=== PATIENT | female | born 1955 | race Caucasian/White ===

== ENCOUNTER 2020-11-07 06:55 | Inpatient (IN) ==
--- NOTE | 2020-10-18 15:03 | PAT Medication Instructions ---
Medication Instructions Date of Service October 18, 2020 Home Medications citalopram 20 mg tablet 40 mg PO HS cyclosporine 0.05 % eye drops 1 drp OPHTHALMIC (EYE) Q12H methimazole 5 mg tablet 10 mg PO QAM anastrozole 1 mg PO QPM loratadine 10 mg PO QAM ASK your prescriber and surgeon anastrozole 1 mg PO QPM DO NOT take the morning of surgery loratadine 10 mg PO QAM Take morning of surgery With a small sip of water, OTHERWISE NOTHING TO EAT OR DRINK AFTER MIDNIGHT: cyclosporine 0.05 % eye drops 1 drp OPHTHALMIC (EYE) Q12H methimazole 5 mg tablet 10 mg PO QAM Take evening before surgery citalopram 20 mg tablet 40 mg PO HS cyclosporine 0.05 % eye drops 1 drp OPHTHALMIC (EYE) Q12H Other Notes If you have any questions please call us at [phone] or [phone] or [phone] or [phone]
--- NOTE | 2020-10-19 12:53 | Anesthesiology Consultation ---
Date of Service October 19, 2020 Assessment & Plan (1) Encounter for pre-operative examination: - COVID screening: Per assessment on 10/19: No known COVID-19 positive contacts or current COVID-19 related symptoms. Only wears mask "when required." Returned from travel to [facility] 10/15 (stayed for one week/condo with family of 8 people, only spouse vaccinated). Patient planning to travel to [facility] 10/21-10/25 with spouse/son/daughter/2 grandchildren. Surgeon arranging preop COVID testing. Awaiting results. Given non-compliance with mask wearing/high risk activity, will order cepheid for AM DOS. Order placed/OR made aware. - RUE limb restriction: s/p right lumpectomy - Anxious: Patient anxious regarding surgery/anesthesia. Requests deeper sedation if spinal used > doesn't want to "hear"/have awareness during surgery. Chart Review Chart Review: Acceptable Risk for Surgery and Patient seen in Pre Admission Testing Teaching & Discussion Pre-Anesthesia Teaching/Discussion Notes: Instructed NPO after midnight before surgery,except medications with 15 cc of water. Medication instructions provided according to the PAT guidelines. History Surgery Operation Date: 11/07/20 10:45 Proposed Procedures p Left Total Knee Arthroplasty - Michael Dee MD Height/Weight Height: 5 ft 7 in Weight: 78.3 kg Allergies Allergy/AdvReac Type Severity Reaction Status Date / Time paroxetine AdvReac Unknown Unknown Verified 10/18/20 12:23 pseudoephedrine AdvReac Unknown Nausea Verified 10/18/20 15:02 [From [facility]] ("sick to stomach" birds Allergy Unknown Bird Uncoded 10/18/20 15:02 feathers- facial swelling morphine and related sulfa AdvReac Unknown "Wacky" Uncoded 10/18/20 15:02 antibiotics feeling Medications Home Medications Medication Instructions Recorded Confirmed Last Taken citalopram 20 mg tablet 40 mg PO HS 12/02/19 10/18/20 Unknown cyclosporine 0.05 % eye drops 1 drp OPHTHALMIC (EYE) Q12H 12/02/19 10/18/20 Un known methimazole 5 mg tablet 10 mg PO QAM 12/02/19 10/18/20 Unknown anastrozole 1 mg PO QPM 10/18/20 10/18/20 Unknown loratadine 10 mg PO QAM 10/18/20 10/18/20 Unknown Past Medical History Medical History Adjustment disorder with depressed mood Hx Arthritis Knees Cancer Hx right breast s/p right lumpectomy 2018, chemo/radiation completed 2019 Ganglion cyst of dorsum of left wrist Hyperthyroidism on methimazole, euthyroid on most recent labs, monitored by PCP Migraine Hx Mild chronic obstructive pulmonary disease stable Temporomandibular joint disorder Occasional cramping, no locking Toxic diffuse goiter Exercise / Class Metabolic Activity II 4-5 Yardwork/Stairs/Walk up hill (one FS (no CP, no SOB)) Past Family History Family History Mother Musculoskeletal disorder Father Diabetes Past Surgical History Surgical History History of colonoscopy 2019 History of colposcopy History of lumpectomy of right breast 2017 History of tooth extraction WTE Past Anesthesia History No Family Hx of Anesthesia Complications and Other ("Very wired" post op, also "slow to wake up") History of PONV No Hx of PONV and No Hx of Motion Sickness Social History Smoking Status: Current every day smoker Smoking cigarettes per day: 10 cigs/day (tobacco use x 40+ years) Do You Dip or Chew Tobacco: No Hx Alcohol Use: Yes Alcohol type: beer Alcohol Intake Frequency Comment: Rare Hx Substance Use: No Review of Systems Patient denies chest pain, shortness of breath, dyspnea on exertion, fever, chills, cough, wheezing, palpitations. Physical Exam Vital Signs VITALS BP 110/67 P 73 TEMP WNL SP02 95%RA RESP 16 PHYSICAL Full cervical extension range of motion. Full TMJ range of motion. TMD 3 finger breaths Mallampati Score 3 Dentition: several missing molars Lungs: clear throughout to auscultation Cardiac: regular rate and rhythm, no murmurs noted Spine: normal Carotid arteries: negative bruit Extremities: no edema Lab Results Anesthesia Preop Results Results Anesthesia Widget: WBC 9.32 K/uL (4.8-10.8) 10/19/20 Hgb 15.4 g/dL (12.0-16.0) 10/19/20 Hct 46.4 % (37-47) 10/19/20 Plt 367 K/uL (130-400) 10/19/20 Na 136 mmol/L (136-145) 10/19/20 K 3.7 mmol/L (3.5-5.1) 10/19/20 Cl 102 mmol/L (98-107) 10/19/20 CO2 31 mmol/L (21-32) 10/19/20 BUN 9 mg/dl (7-18) 10/19/20 Creat 0.72 mg/dl (0.6-1.2) 10/19/20 Glucose Level 75 mg/dl (70-99) 10/19/20 PT 10.8 Seconds (9.0-12.0) 10/19/20 PTT 27.5 Seconds (21.0-31.0) 10/19/20 INR 1.1 (0.9-1.1) 10/19/20 HA1c 5.9 % (4.5-5.6) H 10/19/20 Urine Color Yellow 10/19/20 Urine Appearance Clear (Clear) 10/19/20 Urine pH 6.0 (4.5-7.5) 10/19/20 Urine Specific Buna 1.004 (1.000-1.030) 10/19/20 Urine Protein Negative (Negative) 10/19/20 Urine Glucose (UA) Negative (Negative) 10/19/20 Urine Ketones Negative (Negative) 10/19/20 Urine Blood Negative (Negative) 10/19/20 Urine Nitrite Negative (Negative) 10/19/20 Urine Bilirubin Negative (Negative) 10/19/20 Urine Urobilinogen Negative (Negative) 10/19/20 Urine Leukocyte Esterase Negative (Negative) 10/19/20 Blood Type A Positive 10/19/20 Antibody Screen NEGATIVE 10/19/20 Testing Laboratory Results 07/31/20 TSH 0.88 (WNL) Electrocardiogram Date: 10/19/20 NSR at 67bpm. Possible LAE. Chest X-Ray Date: 10/19/20 No large infiltrates or consolidative lesions are seen. Possible trace left pleural effusion or pleural thickening. Preop testing including CXR to be forwarded to PCP for continuity of care. Echocardiogram Date: 12/22/18 LVEF greater than 70%. Grade 1 diastolic dysfunction. No regional wall motion abnormality. Mild AR. Mildly dilated ascending aorta.
--- NOTE | 2020-11-06 16:00 | History & Physical Report ---
Date of Service November 06, 2020 Assessment & Plan (1) Primary osteoarthritis of left knee: Plan: Treatment options discussed. She has failed conservative measures as above and would like to proceed with surgical intervention. Risks, benefits and alternatives to surgery including but not limited to infection, DVT, pain, stiffness, need for revision surgery, damage to blood vessels, damage to nerves, PE, , were discussed with the patient and they wish to proceed. Plan on left total knee arthroplasty at [facility] on 11/07/20. Will plan on ASA 81mg BID x 1 mo post op, OPPT. All questions answered. F/u post op. History of Present Illness Chief Complaint: Left knee pain Primary Care Provider: Gagandeep Olivas PA-C 65 year old female with PMHx significant for migraine, hypothyroid, breast Ca, COPD presents with longstanding and worsening left knee pain. She has failed conservative measures including injections, NSAIDs, bracing. Pain interfering with her daily and leisure activities. She would like to proceed with replacement. Patient denies headaches, sweats, fevers, chills, double vision, blurred vision, cough, sore throat, dysphagia, chest pain, sob, wheezing, n/v/d/c, numbness, tingling, fatigue, urinary symptoms, mood disorders. ROS positive for left knee pain and stiffness. Allergies Allergy/AdvReac Type Severity Reaction Status Date / Time paroxetine AdvReac Unknown Unknown Verified 10/18/20 12:23 pseudoephedrine AdvReac Unknown Nausea Verified 10/18/20 15:02 [From [facility]] ("sick to stomach" birds Allergy Unknown Bird Uncoded 10/18/20 15:02 feathers- facial swelling morphine and related sulfa AdvReac Unknown "Wacky" Uncoded 10/18/20 15:02 antibiotics feeling Home Medications Medication Instructions Recorded Confirmed Type citalopram 20 mg tablet (Celexa) 40 mg PO HS 12/02/19 10/18/20 History cyclosporine 0.05 % eye drops 1 drp OPHTHALMIC (EYE) Q12H 12/02/19 10/18/20 History (Restasis MultiDose) methimazole 5 mg tablet 10 mg PO QAM 12/02/19 10/18/20 History anastrozole 1 mg tablet 1 mg PO QPM 10/18/20 10/18/20 History loratadine 10 mg capsule 10 mg PO QAM 10/18/20 10/18/20 History Past Med/Surg History Medical History Adjustment disorder with depressed mood Hx Arthritis Knees Cancer Hx right breast s/p right lumpectomy 2017, chemo/radiation completed 2018 Ganglion cyst of dorsum of left wrist Hyperthyroidism on methimazole, euthyroid on most recent labs, monitored by PCP Migraine Hx Mild chronic obstructive pulmonary disease stable Temporomandibular joint disorder Occasional cramping, no locking Toxic diffuse goiter Surgical History History of colonoscopy 2019 History of colposcopy History of lumpectomy of right breast 2017 History of tooth extraction WTE Family History Mother Musculoskeletal disorder Father Diabetes Social History (Updated 10/18/20 @ 12:54 by Darlene Berg RN) Smoking Status: Current every day smoker Tobacco Type: Cigarettes packs per day: 0.50; Years Smoked: 30; Cigarettes Per Day: 10 cigs/day (tobacco use x 40+ years); Second Hand Exposure: No; Hx Alcohol Use: Yes Alcohol type: beer Hx Substance Use: No Preferred Language: Kazakh Communication Ability: Effective Nocturnist Physician Required: No Beliefs That Will Affect Care: None marital status: Current Living Situation: Spouse current occupational status: retired Feels Safe at Home: Yes Assistive Devices: Brace/Splint/Immobilizer, Cane and Glasses Review of Systems All systems reviewed & are unremarkable except as noted in HPI & below Physical Exam Constitutional: well developed and well nourished; no acute distress Eyes: PERRL, conjunctivae normal, anicteric sclerae ENMT: external ear and nose normal, oropharynx normal Neck: trachea midline, no thyromegaly Respiratory: normal respiratory effort, lungs clear to auscultation Cardiovascular: RRR, no murmur, no edema Musculoskeletal: Left knee: Moderate effusion. Tenderness medial joint line, medial and lateral patellar facet. Positive Lon's. Stable to valgus and varus stress. ROM 10-110 degrees. Varus alignment Skin: no rashes, warm and dry Neurologic: patellar DTR's 2+ bilat, sensation intact Psychiatric: A+Ox3, euthymic affect Results & Data ([facility]) Diagnostic Findings Left knee: Left greater than right tricompartmental arthritis. Bone on bone medial compartment with defect medial femoral condyle. Subluxation femur on tibia. Periarticular osteophyte formation all 3 compartments.
[~2020-11-07 06:55] MED LIST: ACETAMINOPHEN 500 MG TAB PO SCH; BUPIVACAINE 0.25% 30 ML VIAL ONE; BUPIVACAINE 0.5 % 5 MG/1 ML PF 10ML VIAL ONE; FAMOTIDINE 20 MG TAB PO SCH; GABAPENTIN 300 MG CAP PO SCH; LR 500ML BOLUS, THEN 15ML/HR IV SCH; METOCLOPRAMIDE HCL 10 MG TABLET PO SCH; ROPIVACAINE 0.5% HCL/PF 150 MG, BUPIVACAINE 0.75% MPF 20 ML, EPINEPHrine 30MG/30ML (OR ... INSTIL SCH; TRANEXAMIC ACID 1,000 MG **IV Intra-op IV SCH; ceFAZolin 1000MG 1,000 MG/7.5 ML SYR IV SCH; dexAMETHasone 4 MG TAB PO SCH
[2020-11-07] MEDS ORDERED: MIDAZOLAM HCL 1 MG/ML 2ML VIAL ONE (07:21)
[2020-11-07] MEDS ORDERED: fentaNYL citrate 100 MCG/2 ML VIAL ONE (07:21)
[2020-11-07] MEDS ORDERED: ONDANSETRON INJ 2 MG/ML 2 ML VIAL IV PRN ×2 (08:17→15:37)
[2020-11-07] MEDS ORDERED: ATROPINE SULFATE 0.1 MG/ML 10ML SYR IV PRN (08:17)
[2020-11-07] MEDS: TRANEXAMIC ACID 1,000 MG **IV Pre-op IV SCH ×2 (09:29→09:59)
--- NOTE | 2020-11-07 09:29 | History & Physical Bridge Note ---
Date of Service November 07, 2020 History & Physical Bridge Note I have examined the patient, reviewed the History & Physical and in the interval since the performance of the History & Physical I have noted the following changes of clinical significance: no changes noted
[2020-11-07] MEDS ORDERED: ORTHO JOINT ANESTHETIC ONE (09:36)
[2020-11-07] MEDS ORDERED: PROPOFOL IV EMULSION 10 MG/ML 20 ML VIAL IV ONE ×4 (10:06→10:50)
--- NOTE | 2020-11-07 12:18 | Operative Report ---
Post Operative Report Pre & Post Diagnosis Operation Date: 11/07/20 09:20 Pre-Op Diagnosis: Left Knee Osteoarthritis Post-Op Diagnosis: Left Knee Osteoarthritis I identified the patient and participated in the time-out.: Yes Procedure Operation Date: 11/07/20 09:20 Actual Procedures p Left Total Knee Arthroplasty(Left) - Michael Dee MD Surgeon Michael Dee MD Production Cell Leader Maximo DILLON Estimated Blood Loss 5 Findings Consistent with Post-Op Diagnosis Specimens Bone cuts Drains 2 Hemovac Anesthesia Type MAC Spinal Regional Complications none Indications 65-year-old female with chronic progressive osteoarthritis left greater than right knee. Radiographs demonstrate she is [id number] some bone wear and flattening of the femoral condyle medial compartment with varus knee and moderately advanced patellofemoral osteoarthritis. Description of Procedure Patient was taken to the operating room placed supine on the operating table and anesthetized under spinal MAC regional anesthesia. Exam under anesthesia demonstrated 15 through 130 degrees range of motion, there was a moderate effusion, there was no instability. A pneumatic tourniquet was placed about the thigh of the left lower extremity. The left lower extremity was prepped and draped in usual fashion. The leg was elevated exsanguinated with an Esmarch bandage and the pneumatic was raised to 300 mm mercury. An anterior incision was made across the left knee. The skin was incised longitudinally subcutaneous flaps were elevated and an incision was made through the medial retinaculum extending up into the mid third of the quadriceps tendon and extended down to the medial tibial tubercle. Intra-articular findings demonstrated marked synovitis in the knee with an inflammatory type arthritis. There was some loose bodies in the knee which were excised. There was [id number] medial compartment with ridging and eburnated bone and moderately bands patellofemoral osteoarthritis. There are tricompartmental osteophytes.. The knee was exposed by excising the infrapatellar fat pad, excising the meniscal remnants and anterior cruciate ligament. All of the inflamed synovial tissue was resected with a partial synovectomy of suprapatellar pouch area and into the gutters. The fat pad over the anterior femur was resected for placement of the component in that area. The lateral synovial bands were release. The femur was exposed. The drill hole was made into the intramedullary canal the femur the guidewire was placed and the cutting guide was adjusted to resect +2 off the femur at a 5 degree valgus cut due to the flexion contracture. The distal femoral cut was made with the oscillating saw. The sizing guide was placed and the drill holes were placed in 3 degrees of external rotation. The size 7, 4-in-1 cutting block was placed. The anterior and posterior chamfer cuts were made. The knee was extended and a subperiosteal peel lateral release was performed around the patella. The patella width was measured and width was reproduced using freehand cut technique. The 32 x 8.5 millimeter symmetrical patella was used. 3 drill holes are made for the pegs. The tibia was exposed. An external tibial cutting guide was positioned corrected for perpendicular cut to the long axis of the tibia and appropriate posterior slope and the proximal cut was made with the oscillating saw. All osteophytes were resected. The lamina salesperson china and glassware was used to assess ligamentous balance and the ligaments were balanced in extension and flexion. Sizing blocks placed demonstrated 14 mm symmetrical extension flexion gap. The tibia was reexposed and measured for a size E tibial component. This was externally rotated in line with the tibial tubercle and the fixation pins were drilled. The proximal tibia was fashioned with the drill and punch. The intramedullary canal bone was somewhat osteoporotic. The size 7 CR femoral trial was inserted. The trial MC inserts were used. The 14 mm insert gave balanced ligaments through full range of motion. The patella tracked centrally. the trials were removed. The orthomix anesthetic cocktail was injected per protocol. The knee was then copiously irrigated with pulsatile lavage saline solution. The final components were cemented with Refobecin bone cement. The final components were [employer] persona left standard size 7 CR femoral component, E tibial component, 14 mm MC polyethylene for tibia, 32 x 8.5 symmetrical patella. After the cement cured with the knee in full extension the Betadine soak was used per protocol. The knee joint was copiously irrigated with pulsatile saline solution. 2 drains were brought out laterally and connected to a Hemovac. The quadriceps tendon and medial retinaculum were closed with interrupted [id number] #1 Vicryl sutures. The knee was taken through a full range of motion and repair was secure. The subcutaneous tissues were closed with 2-0 Vicryl sutures and skin was closed with 3-0 stratofix and Prineo glue system and Silverlon dressing. the patient tolerated the procedure well. Maximo DILLON my physician assistant store manager trainee, assisted in soft tissue retraction instrument management leg positioning the closure and will participate in the postoperative care of the patient. I attest to the content of the Intraoperative Record and any orders documented therein. Any exceptions are noted below.
--- NOTE | 2020-11-07 12:56 | XRay Report ---
XR knee LT 1 or 2V routine HISTORY: 65 years-old Female Surgical Post Op left knee total joint arthroplasty COMPARISON: None TECHNIQUE: 2 views of the left knee FINDINGS: Left knee total joint arthroplasty with patellar resurfacing. Satisfactory alignment without acute fr acture or unexpected opaque foreign body. Expected postoperative soft tissue swelling and deep tissue air with overlying bandage material an surgical drainage catheter. IMPRESSION: Left knee total joint arthroplasty with expected postoperative changes. ACT 112: Negative or not required by law. The above report was generated using voice recognition software. It may contain grammatical, syntax o r spelling errors. Electronically signed by: Flako Hamilton M.D. 11/07/2020 12:54 PM
[2020-11-07] MEDS: SODIUM CHLORIDE 0.9% 1000ML 1,000 ML IV SCH (15:20)
--- NOTE | 2020-11-07 15:32 | Anesthesiology Progress Note ---
Date of Service November 07, 2020 Anesthesia Post Procedure Vital Signs Vital Signs: Temp Pulse Pulse Resp BP Pulse Ox 11/07/20 15:00 36.6 C 66 15 138/66 95 11/07/20 14:30 36.6 C 69 16 140/83 95 11/07/20 14:15 68 16 143/87 H 94 11/07/20 14:00 73 20 180/93 H 92 11/07/20 13:45 66 19 147/79 H 94 11/07/20 13:30 65 17 137/80 93 11/07/20 13:20 36.4 C L 64 17 150/74 H 93 11/07/20 13:10 66 19 161/76 H 92 11/07/20 13:00 65 20 149/82 H 95 11/07/20 12:50 75 20 147/81 H 94 11/07/20 12:45 69 20 146/76 H 94 11/07/20 12:35 69 18 125/69 98 11/07/20 12:25 71 17 117/63 98 11/07/20 12:18 36.4 C L 75 14 114/66 93 11/07/20 08:05 36.8 C 72 20 174/95 H 91 11/07/20 07:21 37 C 75 18 170/85 H 96 Pain Intensity Left Knee: Pain Intensity: 0 Transfer of Care Handoff Completed per policy Notes Mental Status: alert / awake / arousable and participated in evaluation Patient Amnestic to Procedure: Yes Nausea / Vomiting: adequately controlled Pain: adequately controlled Airway Patency, RR, SpO2: stable & adequate BP & HR: stable & adequate Hydration State: stable & adequate Neuraxial Anesthesia: was administered and sensory block is resolving Anesthetic Complications: no major complications apparent and Pt Satisfied with anesthetic care
[2020-11-07] MEDS ORDERED: HYDROmorphone INJ 0.5 MG/0.5 ML SYR IV PRN (15:37)
[2020-11-07] MEDS ORDERED: METOCLOPRAMIDE HCL INJ 5 MG/ML 2 ML VIAL IV PRN (15:37)
[2020-11-07] MEDS ORDERED: bisacodyL 10 MG SUPP PR PRN (15:37)
[2020-11-07] MEDS ORDERED: NALOXONE HCL 0.4 MG/1 ML VIAL/CARP IV PRN (15:37)
[2020-11-07] MEDS ORDERED: ACETAMINOPHEN 500 MG TAB PO SCH (15:37)
[2020-11-07] MEDS ORDERED: MAGNESIUM HYDROXIDE SUSP 30 ML UDC PO PRN (15:37)
[2020-11-07] MEDS: ACETAMINOPHEN 500 MG TAB PO SCH ×2 (17:21→21:44)
[2020-11-07] MEDS: ceFAZolin 1000MG 1,000 MG/7.5 ML SYR IV SCH (17:31)
[2020-11-07] MEDS: CITALOPRAM 40 MG TAB PO SCH (20:31)
[2020-11-07] MEDS: oxyCODONE HCL IR 5 MG TAB (IMMEDIATE RELEASE) PO PRN (20:31)
[2020-11-07] MEDS: SENNA 8.6 MG TAB PO SCH (20:31)
[2020-11-07] MEDS: ASPIRIN 81 MG ECTAB PO SCH (20:31)
[2020-11-07] MEDS: DOCUSATE SODIUM 100 MG CAP PO SCH (20:32)
[2020-11-07] MEDS: ANASTROZOLE 1 MG TAB PO SCH (20:32)
[2020-11-08] MEDS: ceFAZolin 1000MG 1,000 MG/7.5 ML SYR IV SCH (01:02)
[2020-11-08] MEDS: SODIUM CHLORIDE 0.9% 1000ML 1,000 ML IV SCH (01:02)
[2020-11-08] MEDS: oxyCODONE HCL IR 5 MG TAB (IMMEDIATE RELEASE) PO PRN ×5 (01:14→23:43)
[2020-11-08] MEDS: ACETAMINOPHEN 500 MG TAB PO SCH ×3 (06:03→21:44)
[2020-11-08 06:41] LABS: Hematocrit (blood only) 37.7 % (37-47); Hemoglobin 12.6 g/dL (12.0-16.0); Mean Corpuscular Hgb Conc 33.4 g/dL (32-36); Mean Corpuscular Volume 92.6 fL (80-100); Mean Platelet Volume 9.4 fL (7.4-10.4); Platelet Count 383 K/uL (130-400); RDW Coefficient of Variation 13.4 % (11.5-14.5); RDW Standard Deviation 45.5 fL (36.4-46.3); Red Blood Count 4.07 M/uL (4.2-5.4); White Blood Count 14.47 K/uL (4.8-10.8)
[2020-11-08 07:19] LABS: BUN Creatinine Ratio 13.9 (10-20); Calcium 8.7 mg/dl (8.5-10.1); Creatinine Clr Calc Pharmacy 73.7 ml/min; Est GFR (African American) 89.8 ml/min; Est GFR (Non-African American) 77.5 ml/min; Potassium 4.1 mmol/L (3.5-5.1)
[2020-11-08] MEDS: DOCUSATE SODIUM 100 MG CAP PO SCH ×2 (08:49→19:43)
[2020-11-08] MEDS: methIMAzole 5 MG TABLET PO SCH (08:49)
[2020-11-08] MEDS: ASPIRIN 81 MG ECTAB PO SCH ×2 (08:50→19:42)
[2020-11-08] MEDS: LORATADINE 10 MG TAB PO SCH (08:50)
[2020-11-08] MEDS: MULTIVITAMIN TAB PO SCH (08:50)
--- NOTE | 2020-11-08 09:50 | Orthopedic Progress Note ---
Date of Service November 08, 2020 Assessment & Plan (1) Primary osteoarthritis of left knee: Plan: POD#1 left TKA -PT/OT -Pain management as written -AM labs-hemoglobin 12.6 this morning. Mild leukocytosis likely reactive due to perioperative steroids and surgical stress -DVT prophylaxis-SCDs, TEDs, ASA 81mg BID -D/c planning-home with outpatient PT, today vs tomorrow depending on hemovac drain output Admission and Anticipated Discharge Date Admission Date: November 07, 2020 Subjective POD#1 left TKA. Doing well this morning. Pain well controlled. No current complaints. Denies chest pain, sob, dizziness, n/v/d, fever, chills Review of Systems Review of Systems: All systems reviewed & are unremarkable except as noted in Subjective Physical Exam Physical Exam: Dressing to left knee is c/d/i. No calf tenderness. Toes mobile. Good dorsiflexion. Distally n/v status and sensation intact. Constitutional: well developed and well nourished; no acute distress Results & Data ([facility]) Vital Signs (Past 12 Hours) Vital Signs Temp Pulse Pulse Resp BP Pulse Ox 11/08/20 07:25 36.6 C 74 18 135/72 98 11/08/20 03:12 36.6 C 70 16 130/72 94 11/07/20 22:57 96 11/07/20 22:56 36.9 C 69 16 162/90 H 86 L
[2020-11-08] MEDS: SENNA 8.6 MG TAB PO SCH (19:42)
[2020-11-08] MEDS: CITALOPRAM 40 MG TAB PO SCH (19:42)
[2020-11-08] MEDS: ANASTROZOLE 1 MG TAB PO SCH (19:42)
[2020-11-09] MEDS: oxyCODONE HCL IR 5 MG TAB (IMMEDIATE RELEASE) PO PRN ×3 (04:37→12:23)
[2020-11-09] MEDS: ACETAMINOPHEN 500 MG TAB PO SCH (04:58)
[2020-11-09 06:26] VITALS: BP 127/80; TEMP 97.9
--- NOTE | 2020-11-09 07:22 | Orthopedic Progress Note ---
Date of Service November 09, 2020 Assessment & Plan (1) Primary osteoarthritis of left knee: Plan: POD#2 left TKA -PT/OT -Pain management as written -DVT prophylaxis-SCDs, TEDs, ASA 81mg BID -D/c planning-home with outpatient PT, today. D/c hemovac prior to d/c Admission and Anticipated Discharge Date Admission Date: November 07, 2020 Subjective POD#2 left TKA. Doing well this morning. Pain well controlled. No current complaints. Denies chest pain, sob, dizziness, n/v/d, fever, chills Review of Systems Review of Systems: All systems reviewed & are unremarkable except as noted in Subjective Physical Exam Physical Exam: Dressing to left knee is c/d/i. No calf tenderness. Toes mobile. Good dorsiflexion. Distally n/v status and sensation intact. Constitutional: well developed and well nourished; no acute distress Results & Data ([facility]) Vital Signs (Past 12 Hours) Vital Signs Temp Pulse Resp BP Pulse Ox 11/09/20 06:26 36.6 C 61 17 127/80 93 11/08/20 23:24 36.4 C L 68 17 127/66 92
[2020-11-09] MEDS: DOCUSATE SODIUM 100 MG CAP PO SCH (07:47)
[2020-11-09] MEDS: methIMAzole 5 MG TABLET PO SCH (07:47)
[2020-11-09] MEDS: MULTIVITAMIN TAB PO SCH (07:47)
[2020-11-09] MEDS: LORATADINE 10 MG TAB PO SCH (07:47)
[2020-11-09] MEDS: ASPIRIN 81 MG ECTAB PO SCH (07:47)
[2020-11-09 08:26] VITALS: O2SAT 94
[2020-11-09 11:27] VITALS: PULSE 70
--- NOTE | 2020-11-10 21:57 | Discharge Summary ---
Date of Service November 10, 2020 Admission HPI Per Admitting Provider 65 year old female with PMHx significant for migraine, hypothyroid, breast Ca, COPD presents with longstanding and worsening left knee pain. She has failed conservative measures including injections, NSAIDs, bracing. Pain interfering with her daily and leisure activities. She would like to proceed with replacement. Patient denies headaches, sweats, fevers, chills, double vision, blurred vision, cough, sore throat, dysphagia, chest pain, sob, wheezing, n/v/d/c, numbness, tingling, fatigue, urinary symptoms, mood disorders. ROS positive for left knee pain and stiffness. Admission Exam Per Admitting Provider Constitutional: well developed and well nourished; no acute distress Eyes: PERRL, conjunctivae normal, anicteric sclerae ENMT: external ear and nose normal, oropharynx normal Neck: trachea midline, no thyromegaly Respiratory: normal respiratory effort, lungs clear to auscultation Cardiovascular: RRR, no murmur, no edema Musculoskeletal: Left knee: Moderate effusion. Tenderness medial joint line, medial and lateral patellar facet. Positive Lon's. Stable to valgus and varus stress. ROM 10-110 degrees. Varus alignment Skin: no rashes, warm and dry Neurologic: patellar DTR's 2+ bilat, sensation intact Psychiatric: A+Ox3, euthymic affect Principal Diagnosis Left knee osteoarthritis Discharge Exam Constitutional well developed and well nourished; no acute distress Eyes PERRL, conjunctivae normal, anicteric sclerae ENMT external ear and nose normal, oropharynx normal Neck trachea midline, no thyromegaly Respiratory normal respiratory effort, lungs clear to auscultation Cardiovascular RRR, no murmur, no edema Skin no rashes, warm and dry Neurologic patellar DTR's 2+ bilat, sensation intact Psychiatric A+Ox3, euthymic affect Discharge Data Allergies Allergy/AdvReac Type Severity Reaction Status Date / Time feathers Allergy Unknown facial Verified 11/07/20 08:45 swelling ("bird feathers") bupropion [From Wellbutrin] AdvReac Unknown "heart Verified 11/07/20 07:24 thumps" morphine AdvReac Unknown "wacky" Verified 11/07/20 08:46 feeling paroxetine AdvReac Unknown Unknown Verified 10/18/20 12:23 pseudoephedrine AdvReac Unknown Nausea Verified 10/18/20 15:02 [From [facility]] ("sick to stomach" Sulfa (Sulfonamide AdvReac Unknown "Wacky" Verified 11/07/20 08:46 Antibiotics) feeling Procedures Performed Operation Date: 11/07/20 09:20 Actual Procedures p Left Total Knee Arthroplasty(Left) - Michael Dee MD Ordered Studies 11/07/20 05:00 US - OR guided needle placemen Routine Hospital Course (1) Primary osteoarthritis of left knee: Patient presented for same day admission following left total knee arthroplasty on 11/07/20. She tolerated procedure well. The Patient had an uneventful hospital course. Post-operatively, her activity was progressed and well tolerated. They participated in PT with ambulation distance of 160 and 40 feet. ROM of operative knee reached 95 degrees. Labs remained stable- lowest hemoglobin recorded: 12.6. Pain controlled on oral medications. Please refer to daily progress notes and PT notes for complete details. After exam on 11/09/20, patient was felt to be stable for discharge home with outpatient PT. Patient will f/u in the office in about 2 weeks for further evaluation including x-rays and incision check, sooner if having any issues or concerns. POD#2 left TKA -PT/OT -Pain management as written -DVT prophylaxis-SCDs, TEDs, ASA 81mg BID -D/c planning-home with outpatient PT, today. D/c hemovac prior to d/c Lab Results 11/07/20 11/07/20 11/08/20 Range/Units 07:13 07:13 06:07 WBC 14.47 H (4.8-10.8) K/uL RBC 4.07 L (4.2-5.4) M/uL Hgb 12.6 (12.0-16.0) g/dL Hct 37.7 (37-47) % MCV 92.6 (80-100) fL MCH 31.0 (25-34) pg MCHC 33.4 (32-36) g/dL RDW Std Deviation 45.5 (36.4-46.3) fL RDW Coeff of Gilberto 13.4 (11.5-14.5) % Plt Count 383 (130-400) K/uL MPV 9.4 (7.4-10.4) fL Sodium (136-145) mmol/L Potassium (3.5-5.1) mmol/L Chloride (98-107) mmol/L Carbon Dioxide (21-32) mmol/L Anion Gap (3-11) BUN (7-18) mg/dl Creatinine (0.6-1.2) mg/dl Est Cr Clr Drug Dosing ml/min Est GFR ( Amer) ml/min Est GFR (Non-Af Amer) ml/min BUN/Creatinine Ratio (10-20) Glucose (70-99) mg/dl Calcium (8.5-10.1) mg/dl COVID-19 Eval Order Covid19 at [facility] SARS-CoV-2 (PCR) NEGATIVE (Negative) 11/08/20 Range/Units 06:07 WBC (4.8-10.8) K/uL RBC (4.2-5.4) M/uL Hgb (12.0-16.0) g/dL Hct (37-47) % MCV (80-100) fL MCH (25-34) pg MCHC (32-36) g/dL RDW Std Deviation (36.4-46.3) fL RDW Coeff of Gilberto (11.5-14.5) % Plt Count (130-400) K/uL MPV (7.4-10.4) fL Sodium 135 L (136-145) mmol/L Potassium 4.1 (3.5-5.1) mmol/L Chloride 104 (98-107) mmol/L Carbon Dioxide 30 (21-32) mmol/L Anion Gap 1.0 L (3-11) BUN 11 (7-18) mg/dl Creatinine 0.79 (0.6-1.2) mg/dl Est Cr Clr Drug Dosing 73.7 ml/min Est GFR ( Amer) 89.8 ml/min Est GFR (Non-Af Amer) 77.5 ml/min BUN/Creatinine Ratio 13.9 (10-20) Glucose 99 (70-99) mg/dl Calcium 8.7 (8.5-10.1) mg/dl COVID-19 Eval Order SARS-CoV-2 (PCR) (Negative) Total Time Total Time Spent Total Time Spent (In Minutes): 20 Discharge Plan Discharge Items Patient Disposition: Home - Self-Care Reason For Visit: Unilateral Primary Osteoarthritis, Left Knee Discharge Diagnosis: Osteoarthritis Left Knee Activity: Per Instructions section Weightbearing: Left weightbearing Weightbearing Comment: as tolerated with walker Non-emergency contact: Surgeon Call non-emergency contact if: you have any medication questions, your pain is not controlled, you have a fever, your temperature is above 101.5, your wound has increased redness and your wound has increased drainage Follow-up/Referrals: Michael Dee MD [Surgeon] - (follow up in 2weeks from the day of surgery for wound check) Gagandeep Olivas PA-C [Primary Care Provider] - Diet: Regular Addtl Attending Provider Instructions: ACTIVITY RECOMMENDATIONS: SELF CARE INSTRUCTIONS AFTER TOTAL KNEE REPLACEMENT A. You may need to continue a physical therapy program after discharge from the hospital. There are several options available to you. Your doctor will assist you in selecting the best one for you. 1. An out-patient facility 2 to 3 times a week for therapy or home therapy. 2. Continue working on all exercises taught to you in the hospital. Your goals should be to increase bending of your knee to 90 degrees and beyond and to fully straighten your knee. B. You may progress at your own pace from walking with a walker or crutches to a cane; then to no assistive devices. C. Make walking a part of your daily routine. Be up as much as comfortable with rest periods throughout the day. Rest with leg elevation is very important. Use the ice wrap frequently for the first 3-4 weeks. D. There are no restrictions on activities. You may ride in a car, shop, participate in professor of finance and all social activities. E. Wear the long elastic stockings (SHIMA hose) 20 hours a day for 2 weeks after surgery. They can be removed several times a day for laundering and for a bath. F. You may shower, no tub baths until cleared by your doctor. SPECIAL CARE INSTRUCTIONS: VERY IMPORTANT TO READ AND REVIEW A. There are a few signs you need to watch for after you are home. Call [facility] if you notice any of the followin. Increased severe knee pain. Some pain is expected especially when you exercise. 2. Increased swelling in your leg or knee; pain or swelling of the calf muscle in either lower leg. 3. Any fluid drainage from the incision. 4. Shortness of breath or chest pain. B. Please call [facility] at if you have any concerns or questions about your operation or recovery. The doctor or his nurse will return your call promptly. C. You must take antibiotics before dental work, bladder, bowel or other surgery. Your doctor will provide you with a permanent care to carry describing this precaution. IMPORTANT: * REMEMBER TO TAKE ASPIRIN, 81 MG, TWICE DAILY FOR 4 WEEKS UNLESS OTHERWISE DIRECTED. THIS IS YOUR BLOOD THINNER. * HIGH RISK PATIENTS MAY BE PRESCRIBED A STRONGER BLOOD THINNER. THIS WILL BE PROVIDED AT DISCHARGE. * CALL IF INCREASED PAIN, REDNESS, DRAINAGE OR FEVER GREATER THAT 101. * WEAR SHIMA HOSE 20 HOURS PER DAY FOR 2 WEEKS. * YOU MAY HAVE A LARGE BAND-AID LIKE DRESSING (SILVERON). THIS WILL REMAIN ON YOUR INCISION FOR 7 DAYS, THEN CAN BE REMOVED. IF INCISION IS LEAKING THROUGH DRESSING, CALL THE OFFICE . This is a mesh tape dressing that is covered with glue. It should remain in place until the incision is properly healed, usually 10-14 days. This dressing is designed to naturally slough off. You may trim the excess mesh tape as it peels off. Incision may be briefly wet in a shower. Dry immediately by blotting with a clean, dry towel. Do not bath or swim until instructed by your doctor. Do not scratch, rub, or pick at the dressing. Do not apply any topical ointments or lotions until dressing is completely removed and/or instructed by your doctor. There may be a small piece of suture material at one end of your incision. Do not pull or trim this. If it is bothersome or catching on clothing, you may co muriel it with a band-aid. FOLLOW UP VISIT: If appointment is not already scheduled: Please call [facility] to make a follow-up appointment for 2 weeks after your surgery at . Stand-Alone Forms: [employer], Opioid Pain Management, Smoking Cessation Medications and DC Order Prescriptions: New aspirin 81 mg Tablet,Delayed Release (Dr/Ec) 81 mg PO BID Qty: 60 RF: 0 acetaminophen [Tylenol Extra Strength] 500 mg Tablet 1,000 mg PO Q8 Qty: 60 RF: 0 oxycodone 5 mg Tablet 5 - 10 mg PO .Q4h-6h MDD 6 PRN (Reason: pain) Qty: 30 RF: 0 Continued citalopram [Celexa] 20 mg tablet 40 mg PO HS RF: 0 methimazole 5 mg tablet 10 mg PO QAM RF: 0 Restasis MultiDose 0.05 % drops 1 drp ophthalmic (eye) Q12H RF: 0 anastrozole 1 mg Tablet 1 mg PO QPM RF: 0 loratadine 10 mg Capsule 10 mg PO QAM RF: 0 Discharge Orders: Discharge Order (Routine); Ordered 11/09/20 Ordered By: Norbert Rm/Other Patient Handouts: Quit-Smoking Tools Help for ..., Planning to Quit Smoking, Getting Support for Quitting Smoking, Coping with Smoking Withdrawal, Staying Smoke-Free Admission Data Admit Date/Time: 11/07/20 12:21 Attending Provider: Michael Dee Admit Provider: Michael Dee Primary Care Provider: Gagandeep Olivas Other Interventions: Discharge Summary Assessment (RN) Last Done: 11/09/20 11:24
== END 2020-11-09 12:35 | disposition home or self-care (01) | DRG 470 ==
LOC: ASU 06:55 → PACUINP 06:55 → OBSVTOIN 12:21 → 3E 12:29